=== PATIENT | female | born 1955 | race Caucasian/White ===

== ENCOUNTER → 2019-09-09 10:06 | Outpatient (CLI) | payer MEDICARE, OTHER, SELFPAY ==
--- NOTE | ~2019-09-09 | US_ITS ---
EXAMINATION: US retroperitoneal comp DATE: 09/09/2019 10:45 INDICATION: Chronic cystitis without hematuria TECHNIQUE: Multiple grayscale and Doppler ultrasound images of the kidneys were obtained. COMPARISON: None. FINDINGS: The right kidney measures 8.9 x 4.2 x 5.6 cm. The left kidney measures 9.5 x 4.6 x 5.1 cm. The kidneys demonstrate normal parenchymal echogenicity. There is no hydronephrosis. The bladder is n ormal. IMPRESSION: 1. Mild atrophy of the kidneys. Reviewed, dictated and finalized at location B.
== END ==
PROVIDERS: PCP Internal Medicine; Visit Provider Nurse Practitioner Adult Health
DX: N30.20 Other chronic cystitis without hematuria (principal); N26.1 Atrophy of kidney (terminal)
CPT/HCPCS: 76770

== ENCOUNTER → 2019-09-09 10:06 | Outpatient (CLI) | payer MEDICARE, OTHER, SELFPAY ==
--- NOTE | ~2019-09-09 | MM_ITS ---
EXAMINATION: MM screening [facility] HISTORY: Screening mammogram TECHNIQUE: Craniocaudal and mediolateral oblique 3-D tomosynthesis images were obtained and synthetic 2-D images were generated. CAD analysis was submitted and interpreted. COMPARISON: 06/10/2018, 01/28/2016 bilateral digital screening mammogram examinations BREAST PARENCHYMAL COMPOSITION: There are scattered areas of fibroglandular density. FINDINGS: There is no evidence of suspicious mass, calcification, or architectural distortion to sugg est malignancy in either breast. There has been no suspicious interval change. IMPRESSION: 1. No mammographic evidence of malignancy. 2. Recommend routine screening mammography in one year. BI-RADS Category 1: Negative Reviewed, dictated and finalized at location A.
== END ==
PROVIDERS: PCP Internal Medicine; Visit Provider Obstetrics & Gynecology Gynecology
DX: Z12.31 Encounter for screening mammogram for malignant neoplasm of breast (principal)
CPT/HCPCS: 77063; 77067

== ENCOUNTER 2020-03-08 08:57 | Outpatient (CLI) | payer MEDICARE, OTHER, SELFPAY ==
--- NOTE | 2020-03-08 11:00 | NEURO_ITS ---
Patient Number: [id number] Impression: # Complains of right lower extremity numbness. 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 # Normal motor and sensory nerve conduction study in right lower extremity with normal F-waves. # Normal needle/EMG exam without fibrillations or myotonia. # Normal study. # Clinical correlation recommended. Nerve Conduction Studies Anti Sensory Summary Table Stim Site NR Peak (ms) P-T Amp (?V) Site1 Site2 Delta-P (ms) Dist (cm) Shreyas (m/s) Right Sup Fibular Anti Sensory (Ant Lat Mall) 14 cm 3.9 8.5 14 cm Ant Lat Mall 3.9 16.0 41 Right Sural Anti Sensory (Lat Mall) Calf 3.6 12.9 Calf Lat Mall 3.6 16.0 44 Motor Summary Table Stim Site NR Onset (ms) O-P Amp (mV) Site1 Site2 Delta-0 (ms) Dist (cm) Shreyas (m/s) Right Peroneal Motor (Vastus Med) Ankle 4.2 2.4 Popit Ankle 7.4 35.0 47 Popit 11.6 2.4 Right Tibial Motor (Abd Ferrara Brev) Ankle 4.0 3.4 Knee Ankle 8.3 40.0 48 Knee 12.3 2.3 F Wave Studies NR F-Lat (ms) L-R F-Lat (ms) Right Peroneal (Mrkrs) (EDB) 44.56 Right Tibial (Mrkrs) (Abd Hallucis) 43.98 EMG Side Muscle Nerve Root Ins Act Fibs Amp Dur Recrt Comment Right AntTibialis Dp Br Fibular L4-5 Nml Nml Nml Nml Nml Right Gastroc Tibial S1-2 Nml Nml Nml Nml Nml Right Fibularis Long Sup Br Fibular L5-S1 Nml Nml Nml Nml Nml Right Flex Dig Long Tibial L5-S2 Nml Nml Nml Nml Nml Right Ext Dig Brev Dp Br Fibular L5, S1 Nml Nml Nml Nml Nml Right QuadratusFem QuadFemoris L4-5, S1 Nml Nml Nml Nml Nml MTDD
== END 2020-03-08 08:58 | disposition home or self-care (01) ==
LOC: ANHNEURO 08:58
PROVIDERS: PCP Internal Medicine; Visit Provider Internal Medicine
DX: R20.2 Paresthesia of skin (principal)
CPT/HCPCS: 95886; 95908

== ENCOUNTER 2021-04-12 10:36 | Outpatient (CLI) | payer MEDICARE, OTHER, SELFPAY ==
--- NOTE | ~2021-04-12 | CT_ITS ---
EXAMINATION: CTA brain carotid DATE: 04/12/2021 11:44 INDICATION: Dizziness. Other visual disturbances. TECHNIQUE: Computed tomographic angiography (CTA) of the head was performed without and with 100 mL O mnipaque-350 intravenous contrast. CTA of the neck was performed with intravenous contrast. Automated exposure control and iterative reconstruction technique were employed. The dose-length product was 1 484.26 mGy-cm. Maximum intensity projection and volume rendered 3D-reconstructions were created by nando calderon technologist on a separate workstation. COMPARISON: None. FINDINGS: HEAD CTA: There is no intracranial hemorrhage, acute infarction, or abnormal intracranial mass lesion . The ventricles are normal in size. The paranasal sinuses are clear. The orbits are normal. The mast oid air cells are normal. Left vertebral artery is dominant. There is no significant stenosis of basi lar artery or the posterior cerebral arteries. There is an infundibulum of left posterior communicati ng artery. Right posterior communicating artery is normal. There is no significant stenosis of the in tracranial internal carotid arteries or anterior or middle cerebral arteries. Anterior communicating artery is normal. There is no aneurysm. NECK CTA: There is mild scarring at the lung apices. There are no pathologically enlarged lymph nodes . There is a 4 mm nodule in left thyroid lobe, likely not clinically significant. There is no signifi cant stenosis of the vertebral arteries. There is mild plaque in the proximal internal carotid arteri es. There is 0% stenosis of the proximal right internal carotid artery relative to normal distal bridger ry lumen diameter (NASCET criteria). There is 0% stenosis of the proximal left internal carotid arter y relative to normal distal artery lumen diameter. There is mild cervical spondylosis. IMPRESSION: 1. Normal brain. No aneurysm or significant intracranial arterial stenosis. 2. 0% stenosis of the proximal internal carotid arteries relative to normal distal artery lumen diame ters (NASCET criteria). Reviewed, dictated and finalized at location A. IMPRESSION: 1. Normal brain. No aneurysm or significant intracranial arterial stenosis. 2. 0% stenosis of the proximal internal carotid arteries relative to normal dis colby artery lumen diameters (NASCET criteria).
[2021-04-12 11:35] LABS: Estimated Glomerular Filt Rate > 60
== END 2021-04-12 10:37 | disposition home or self-care (01) ==
PROVIDERS: PCP Internal Medicine; Visit Provider Nurse Practitioner
DX: H53.8 Other visual disturbances (principal)
CPT/HCPCS: 70496; 70498; Q9967

== ENCOUNTER → 2022-02-03 14:30 | Outpatient (CLI) | payer MEDICARE, OTHER, SELFPAY ==
--- NOTE | ~2022-02-03 | DEXA_ITS ---
Bone Density Report Name: BRENDA SPAULDING Age: 66 Sex: Female Ethnicity: White Date of : 1955 Indication: postmenopausal; screening for osteoporosis; parental hip fracture; height loss; Referring Provider: JADE CAREY Study: Bone densitometry was performed. Exam Date: February 03, 2022 Accession number: [id number] Bone Density: Region BMD T-score Z-score Classification AP Spine (L1-L4) 1.001 -0.4 1.6 Normal Femoral Neck (Left) 0.582 -2.4 -0.7 Osteopenia Total Hip (Left) 0.820 -1.0 0.4 Normal Femoral Neck (Right) 0.604 -2.2 -0.5 Osteopenia Total Hip (Right) 0.804 -1.1 0.3 Osteopenia Total Hip Mean 0.812 -1.1 0.4 Osteopenia World Health Organization criteria for BMD impression classify patients as: Normal (T-score at or above -1.0), Osteopenia (T-score between -1.0 and -2.5), or Osteoporosis (T-score at or below -2.5). 10-year Fracture Risk(1): Major Osteoporotic Fracture 22% Hip Fracture 5.3% Reported Risk Factors: [place] (), Neck BMD=0.582, BMI=25.1, parental fracture (1) FRAX(R) Version 3.08. Fracture probability calculated for an untreated patient. Fracture probability may be lower if the patient has received treatment. Previous Exams: Region Exam Age BMD T-score BMD Change BMD Change Date g/cm2 vs Baseline vs Previous AP Spine(L1-L4) 02/03/2022 66 1.001 -0.4 0.053* -0.066* 01/28/2016 60 1.068 0.2 0.120* 0.130* 01/13/2014 58 0.938 -1.0 -0.010 0.041* 07/31/2011 56 0.897 -1.4 -0.051* 0.055* 06/13/2009 54 0.842 -1.9 -0.106* -0.106* 09/29/2006 51 0.948 -0.9 Total Hip(Left) 02/03/2022 66 0.820 -1.0 0.004 -0.019 06/10/2018 63 0.839 -0.8 0.023 -0.040* 01/28/2016 60 0.879 -0.5 0.064* 0.046* 01/13/2014 58 0.834 -0.9 0.018 0.024 07/31/2011 56 0.810 -1.1 -0.006 0.019 06/13/2009 54 0.791 -1.2 -0.025 -0.025 09/29/2006 51 0.816 -1.0 Total Hip(Right) 02/03/2022 66 0.804 -1.1 -0.014 -0.035* 06/10/2018 63 0.839 -0.8 0.021 0.008 01/28/2016 60 0.831 -0.9 0.013 0.005 01/13/2014 58 0.826 -0.9 0.008 0.015 07/31/2011 56 0.812 -1.1 -0.006 0.014 06/13/2009 54 0.797 -1.2 -0.020 -0.020 09/29/2006 51 0.818 -1.0 *Denotes significance at 95% confidence l
--- NOTE | ~2022-02-03 | MM_ITS ---
EXAMINATION: MM screening [facility] HISTORY: Screening TECHNIQUE: Craniocaudal and mediolateral oblique 3-D tomosynthesis images were obtained and synthetic 2-D images were generated. CAD analysis was submitted and interpreted. COMPARISON: Comparison to multiple prior studies sequentially, with oldest reviewed study dated 01/27. BREAST PARENCHYMAL COMPOSITION: There are scattered areas of fibroglandular density. FINDINGS: There is no evidence of suspicious mass, calcification, or architectural distortion to sugg est malignancy in either breast. There has been no suspicious interval change. IMPRESSION: 1. No mammographic evidence of malignancy. 2. Recommend routine screening mammography in one year. BI-RADS Category 1: Negative Reviewed, dictated and finalized at location A.
== END ==
PROVIDERS: PCP Obstetrics & Gynecology Gynecology; Visit Provider Obstetrics & Gynecology Gynecology
DX: Z12.31 Encounter for screening mammogram for malignant neoplasm of breast (principal); Z78.0 Asymptomatic menopausal state; M85.89 Other specified disorders of bone density and structure, multiple sites
CPT/HCPCS: 77063; 77067; 77080

== ENCOUNTER 2022-04-16 16:20 | Emergency (ER) | payer OTHER, MEDICARE, SELFPAY ==
--- NOTE | ~2022-04-16 | CT_ITS ---
EXAMINATION: CT cervical spine wo con DATE: 04/16/2022 17:46 INDICATION: head injury TECHNIQUE: Computed tomography (CT) of the cervical spine was performed without intravenous contrast. Automated exposure control and iterative reconstruction technique were employed. The dose-length pro duct was 225.00 mGy-cm. COMPARISON: CTA brain carotid 04/12/2021 FINDINGS: Vertebral Body Alignment: Intact. Craniocervical and atlantoaxial alignment: Moderate degenerative change. Alignment intact. Osseous structures/fracture: No evidence of a lytic or blastic process in the visualized cervical spi ne. Incidental note of superior endplate deformity and sclerosis at T3. No evidence of acute fracture . Trace left mastoid fluid. Cervical soft tissues: The paraspinal soft tissues planes are maintained. Biapical pleural scarring. Degenerative changes: Multilevel mild degenerative disc disease. Multilevel moderate facet arthropath y. No severe central canal or neural foraminal narrowing. IMPRESSION: No acute fracture or traumatic malalignment in the cervical spine. Mild superior endplate deformity a t T3, most likely chronic, unless accompanied by acute pain/tenderness. Reviewed, dictated and finalized at location K. IMPRESSION: No acute fracture or traumatic malalignment in the cervical spine. Mild superio r endplate deformity at T3, most likely chronic, unless accompanied by acute pa in/tenderness.
--- NOTE | ~2022-04-16 | CT_ITS ---
EXAMINATION: CT brain wo con DATE: 04/16/2022 17:45 INDICATION: head injury . TECHNIQUE: Computed tomography (CT) of the head was performed without intravenous contrast. The mA wa s adjusted according to patient size. Iterative reconstruction technique was employed. The dose-lengt h product was 529.67 mGy-cm. COMPARISON: 04/12/2021 FINDINGS: No acute intracranial hemorrhage or extra-axial fluid collection. No hydrocephalus, mass, or herniation. No acute ischemic infarct. Unremarkable dural venous sinus attenuation. No acute osseous abnormality. The aerated spaces are clear. Mild atherosclerotic intracranial calcifications. IMPRESSION: No acute intracranial process. Reviewed, dictated and finalized at location K.
[2022-04-16 16:35] VITALS: BP 159/85; PULSE 95; RESP 16; TEMP 36.2; O2SAT 97
--- NOTE | 2022-04-16 18:04 | ED.FALL ---
HPI - Fall General Chief Complaint: Fall Stated Complaint: fall, hit head Time Seen by Provider: 04/16/22 17:16 History of Present Illness HPI Narrative: 66-year-old female presents to the emergency room for evaluation of a head injury sustained from a ground-level mechanical fall. Patient states that she was walking forward when she slipped in some water falling backwards landing on the back of her head. Patient denies any LOC or altered mental status. Denies confusion, headaches or dizziness. Denies any nausea or vomiting. Denies vision or hearing changes. Patient is currently not anticoagulated. Related Data Home Medications Medication Instructions Recorded Confirmed calcium carbonate 600 mg calcium 600 mg PO BID 07/01/19 01/21/22 (1,500 mg) tablet cholecalciferol (vitamin D3) 250 250 mcg PO DAILY 01/07/21 01/21/22 mcg (10,000 unit) capsule Allergies Allergy/AdvReac Type Severity Reaction Status Date / Time erythromycin base Allergy Severe Unknown Verified 04/16/22 16:37 Penicillins Allergy Severe Unknown Verified 04/16/22 16:37 Review of Systems Review of Systems: CONSTITUTIONAL: Denies fever, chills, or sweats. EYES: Denies visual changes, redness, or discharge. ENT: Denies rhinorrhea, congestion, sore throat, or otalgia. CARDIOVASCULAR: Denies chest pain, palpitations, or edema. RESPIRATORY: Denies cough or dyspnea. GASTROINTESTINAL: Denies abdominal pain, nausea, vomiting, or diarrhea. GENITOURINARY: Denies dysuria or hematuria. SKIN: Denies rash or itching. MUSCULOSKELETAL: Denies back pain, joint pain, or myalgia. NEUROLOGIC: Denies headache, numbness, dizziness, or weakness. PSYCHIATRIC: Denies anxiety or depression. 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 HEAD: Normocephalic, small hematoma to posterior scalp EYES: Conjunctivae normal, PERRLA and EOMI. ENT: External nose normal, Nares clear, no rhinorrhea or epistaxis. Mucous membranes moist. Oropharynx without tonsillar hypertrophy exudate or other lesions. External ears normal, bilateral TMs normal bilaterally NECK: Supple. No meningeal signs. CHEST: Clear to auscultation. No respiratory distress. No wheezes rales or rhonchi. HEART: Regular rate and rhythm. No murmur heard. Normal peripheral pulses. ABDOMEN: Soft, nontender, nondistended, normal active bowel sounds. BACK: No midline cervical tenderness, step-offs, bony abnormality; FROM EXTREMITIES: Normal range of motion. No edema. No clubbing or cyanosis SKIN: Warm, dry, no rash. No noted wounds NEURO: No focal deficits. Alert and oriented x3. MAEW. CN's II-XI intact bilaterally, normal gait PSYCH: Cooperative. Normal mood and affect. Course Vital Signs Vital signs: Vital Signs Temperature 36.2 C L 04/16/22 16:35 Pulse Rate 95 04/16/22 16:35 Respiratory Rate 16 04/16/22 16:35 Blood Pressure 159/85 H 04/16/22 16:35 Pulse Oximetry 97 04/16/22 16:35 Temperature 36.2 C L 04/16/22 16:35 Pulse Rate 95 04/16/22 16:35 Respiratory Rate 16 04/16/22 16:35 Blo
== END 2022-04-16 19:04 | disposition home or self-care (01) ==
LOC: ANHED 18:53
PROVIDERS: Emergency Provider Nurse Practitioner Family; PCP Internal Medicine
DX: S09.90XA Unspecified injury of head, initial encounter (principal); W01.0XXA Fall on same level from slipping, tripping and stumbling without subsequent striking against object, initial encounter
CPT/HCPCS: 70450; 72125; 99284

== ENCOUNTER → 2023-01-28 11:34 | Outpatient (CLI) | payer MEDICARE, OTHER, SELFPAY ==
--- NOTE | ~2023-01-28 | XR_ITS ---
EXAMINATION: XR thoracic spine 3V DATE: 01/28/2023 11:52 INDICATION: Thoracic spine pain TECHNIQUE: AP, lateral and lateral swimmer's views of the thoracic spine were obtained. COMPARISON: None. FINDINGS: Bone alignment is normal. There is no fracture. The vertebral body heights are maintained. There is mild loss of intervertebral disc space height in the midthoracic spine. Surgical clips in th e right upper quadrant are likely from prior cholecystectomy. IMPRESSION: 1. Mild thoracic spondylosis without acute findings. Reviewed, dictated and finalized at location B.
== END ==
PROVIDERS: PCP Nurse Practitioner; Visit Provider Nurse Practitioner
DX: M54.6 Pain in thoracic spine (principal); M43.04 Spondylolysis, thoracic region
CPT/HCPCS: 72072

== ENCOUNTER → 2023-04-23 11:16 | Outpatient (CLI) | payer MEDICARE, OTHER, SELFPAY ==
--- NOTE | ~2023-04-23 | MM_ITS ---
EXAMINATION: MM screening ned[facility] BI [facility] HISTORY: Screening TECHNIQUE: Craniocaudal and mediolateral oblique 3-D tomosynthesis images were obtained and synthetic 2-D images were generated. CAD analysis was submitted and interpreted. COMPARISON: Comparison to multiple prior studies sequentially, with oldest reviewed study dated 01/27. BREAST PARENCHYMAL COMPOSITION: Breast composed of scattered areas of fibroglandular density FINDINGS: The left breast is stable without evidence for malignancy. There is a new mass in the lower outer quadrant of the right breast anteriorly. IMPRESSION: 1. New right breast mass, lower outer quadrant anteriorly. 2. Additional mammographic views and possible breast ultrasound are recommended. BI-RADS Category 0: Incomplete: Needs additional imaging evaluation. Reviewed, dictated and finalized at location A. STRY PATROLMAN IMPRESSION: 1. New right breast mass, lower outer quadrant anteriorly. 2. Additional mammographic views and possible breast ultrasound are recommended . BI-RADS Category 0: Incomplete: Needs additional imaging evaluation.
== END ==
PROVIDERS: PCP Obstetrics & Gynecology Gynecology; Visit Provider Obstetrics & Gynecology Gynecology
DX: Z12.31 Encounter for screening mammogram for malignant neoplasm of breast (principal); R92.8 Other abnormal and inconclusive findings on diagnostic imaging of breast
CPT/HCPCS: 77063; 77067

== ENCOUNTER → 2023-05-14 09:09 | Outpatient (CLI) | payer MEDICARE, OTHER, SELFPAY ==
--- NOTE | ~2023-05-14 | MMUS_ITS ---
EXAMINATION: MM diagnostic nedra RT [facility], US breast RT limited HISTORY: New right breast mass suggested on 04/23/2023 screening mammogram TECHNIQUE: Additional 3-D tomosynthesis images of the right breast were performed and synthetic 2-D i mages were generated. CAD analysis was submitted and interpreted. High resolution upper outer quadran t and lower outer quadrant right breast ultrasound was performed. COMPARISON: 05/03/2023 screening mammogram FINDINGS: MAMMOGRAPHIC FINDINGS: There is an approximately 3.6 x 6.9 mm opacity in the anterior lateral mid right breast, best demonst rated on ML full-field Tomosynthesis image /). Approximately 3 x 4.5 mm poorly circumscribed opac ity is noted in the same area that situated a little more posteriorly. Ultrasound imaging of the late ral aspect of the right breast was performed. ULTRASOUND: 9:00 3 cm from nipple: There is an irregular and typed parallel hypoechoic mass with posterior shadow ing, measuring up to approximately 8.5 mm dimension. Ultrasound-guided biopsy is recommended. IMPRESSION: 1. Irregular approximately 8.5 mm mass of right breast at 9:00 3 cm from nipple 2. Ultrasound-guided biopsy of right breast 9:00 lesions is recommended BI-RADS category 4, suspicious findings. Dr. Goodman telephoned the report and ultrasound-guided biopsy recommendation of right breast 9:00 lesio n on 05/14/2023 at 1012 hours to MARIANGEL Mayfield. Reviewed, dictated and finalized at location A. ERMAN IMPRESSION: 1. Irregular approximately 8.5 mm mass of right breast at 9:00 3 cm from nipple 2. Ultrasound-guided biopsy of right breast 9:00 lesions is recommended BI-RADS category 4, suspicious findings. Dr. Goodman telephoned the report and ultrasound-guided biopsy recommendation of r ight breast 9:00 lesion on 05/14/2023 at 1012 hours to MARIANGEL Mayfield.
== END ==
PROVIDERS: PCP Obstetrics & Gynecology Gynecology; Visit Provider Obstetrics & Gynecology Gynecology
DX: R92.8 Other abnormal and inconclusive findings on diagnostic imaging of breast (principal)
CPT/HCPCS: 76642; 77061; 77065; G0279

== ENCOUNTER 2024-02-23 09:07 | Outpatient (CLI) | payer MEDICARE, SELFPAY ==
--- NOTE | ~2024-02-23 | DEXA_ITS ---
Bone Density Report Name: BRENDA SPAULDING Age: 68 Sex: Female Ethnicity: White Date of : 1955 Indication: postmenopausal; screening for osteoporosis; parental hip fracture; height loss; history of glucocorticoids; Referring Provider: JADE CAREY Study: Bone densitometry was performed. Exam Date: February 23, 2024 Accession number: [id number] Bone Density: Region BMD T-score Z-score Classification AP Spine(L1-L4) 0.986 -0.6 1.6 Normal Femoral Neck (Left) 0.603 -2.2 -0.4 Osteopenia Total Hip (Left) 0.902 -0.3 1.2 Normal Femoral Neck (Right) 0.629 -2.0 -0.1 Osteopenia Total Hip (Right) 0.872 -0.6 1.0 Normal Total Hip Mean 0.887 -0.5 1.1 Normal World Health Organization criteria for BMD impression classify patients as: Normal (T-score at or above -1.0), Osteopenia (T-score between -1.0 and -2.5), or Osteoporosis (T-score at or below -2.5). 10-year Fracture Risk(1): Major Osteoporotic Fracture 30% Hip Fracture 11% Reported Risk Factors: [place] (), Neck BMD=0.603, BMI=22.7, parental fracture, glucocorticoids (1) FRAX(R) Version 3.08. Fracture probability calculated for an untreated patient. Fracture probability may be lower if the patient has received treatment. Clinical Information Provided by Patient: Parent has had a hip fracture Has taken Glucocorticoids Has used the following medications: Vitamin D, Calcium Patient maximum height was 62 Menopause Age: 53 No regular weight bearing exercise Onset of menses at age 15 Number of children 1 Impression: The patient has low bone mass, based on the Left Femoral Neck T-score. The patient has an estimated ten-year risk of hip fracture of 11% and an estimated ten-year risk of major fracture of 30%, based on the WHO FRAX algorithm. The patient has risk factors, including: parental hip fracture, history of glucocorticoid therapy. Discussion: BONE DENSITY IS LOW AT ONE OR MORE SKELETAL SITES. THE PATIENT'S BMD AND CLINICAL RISK FACTORS CONTRIBUTE TO THIS PATIENT'S HIGH RISK OF FRACTURE. This patient's lowest T-score is low at one or more skeletal sites. It meets the World Health Organization's (WHO) criteria for ?low bone mass? (T-score between -1.0 and -2.5). The patient's 10-year risk of hip fracture and 10 year risk of a major osteoporotic fracture as calculated by FRAX exceeds the threshold where pharmacological therapy is recommended by the National Osteoporosis Foundation (NOF). However, all treatment decisions require clinical judgment and consideration of individual patient factors, including patient preferences, comorbidities, previous drug use, risk factors not captured in the FRAX model (e.g., frailty, falls, vitamin D deficiency, increased bone turnover, interval significant decline in bone density) and possible under or overestimation of fracture risk by FRAX. The patient should follow a h
== END 2024-02-23 09:08 | disposition home or self-care (01) ==
LOC: ANHIMG 09:08
PROVIDERS: PCP Family Medicine; Visit Provider Obstetrics & Gynecology Gynecology
DX: M85.89 Other specified disorders of bone density and structure, multiple sites (principal); Z78.0 Asymptomatic menopausal state
CPT/HCPCS: 77080

== ENCOUNTER 2024-03-15 13:14 | Outpatient (CLI) | payer MEDICARE, SELFPAY ==
--- NOTE | ~2024-03-15 | XR_ITS ---
XR hip BI 2V w AP pelvis Ordering provider: Chas Goomdan MD History: . M25.552 - Pain in left hip . Comparison: None. FINDINGS: BONES: No acute fracture or dislocation. HIP JOINT SPACES: Normal. SACROILIAC JOINT SPACES/LUMBAR SPINE: The sacroiliac joint spaces are normal. Mild degenerative nunn es of the visualized lower lumbar spine. PUBIC SYMPHYSIS: Normal. SOFT TISSUES: Normal. IMPRESSION: No acute osseous abnormality of the bilateral hips and pelvis. Reviewed, dictated and finalized at location A.
--- NOTE | ~2024-03-15 | XR_ITS ---
Lumbosacral Spine: AP and lateral views Clinical History: Pain Findings: There is mild dextroscoliosis. There is minimal grade 1 retrolisthesis of L3 over L4. There is moderate to advanced degenerative disc narrowing at L2-L3 with moderate degenerative disc narrowi ng at L1-L2 and L3-L4. There is moderate to advanced facet arthropathy throughout the lumbar spine. T he sacroiliac joints are normally outlined. Impression: Moderate to advanced degenerative spondylosis, as above. Dextroscoliosis. Reviewed, dictated and finalized at location M. Impression: Moderate to advanced degenerative spondylosis, as above. Dextroscoliosis.
== END 2024-03-15 13:15 | disposition home or self-care (01) ==
PROVIDERS: PCP Family Medicine; Visit Provider Family Medicine
DX: M54.30 Sciatica, unspecified side (principal); M25.552 Pain in left hip; M47.816 Spondylosis without myelopathy or radiculopathy, lumbar region; M41.9 Scoliosis, unspecified
CPT/HCPCS: 72100; 73521

== ENCOUNTER 2025-06-09 14:49 | Emergency (ER) | payer MEDICARE, SELFPAY ==
[2025-06-09 15:00] VITALS: BP 180/86; PULSE 83; RESP 16; TEMP 36.5; O2SAT 100
--- NOTE | 2025-06-09 15:10 | ED.FEMALEGU ---
HPI - Female Genitourinary General Chief complaint: Urogenital-Female Stated complaint: UTI Source: patient Mode of arrival: ambulatory Limitations: no limitations History of Present Illness HPI Narrative: this is a 70-year-old female who presents to the urgent care with complaints of burning with urination, frequency of urination and foul-smelling urine. Patient states he has a history of UTIs. She is hoping to see her primary today however they are close. She denies any fever chills, she states this is getting more more comfortable when she urinates. More burning sensation. Denies any fever chills denies any nausea, vomiting or diarrhea. MD elicited complaint: dysuria Onset (ago): day(s) (2) Location of symptoms: suprapubic Severity: mild Female Urogenital Radiation: Suprapubic Severity scale (1-10): 3 Quality of pain: burning Consistency: constant Vaginal discharge: none Vaginal bleeding: none Urinary symptoms: Dysuria, Frequency and Foul Smelling Urine Exacerbating factors: urination Relieving factors: none Associated symptoms: denies other symptoms Treatment prior to arrival: OTC urinary analgesics Sexual activity: No Patient : No Related Data Home Medications ?Medication ?Instructions ?Recorded ?Confirmed ?Last Taken ?Type calcium carbonate 600 mg PO BID 07/01/19 01/21/22 Unknown History cholecalciferol (vitamin D3) 250 250 mcg PO DAILY 01/07/21 01/27/23 Unknown History mcg (10,000 unit) capsule alendronate 70 mg tablet (Fosamax) 70 mg PO WEEKLY 01/27/23 01/27/23 Unknown History aspirin 81 mg tablet 81 mg PO DAILY 03/29/25 Unknown History Allergies Allergy/AdvReac Type Severity Reaction Status Date / Time erythromycin base Allergy Severe Unknown Verified 06/09/25 14:52 Penicillins Allergy Severe Unknown Verified 06/09/25 14:52 Review of Systems Review of Systems: All systems reviewed & are unremarkable except as noted in HPI and below PMFSH Past Medical History Medical History History of ectopic Hernia Myotonia Osteopenia Obstructed fallopian 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 Ovarian cyst Surgical History Surgical History Hx of tonsillectomy History of carpal tunnel release Hx of appendectomy History of cholecystectomy Family History Family History Mother Hypertension Father Family history of emphysema Grandparent Family history of lung cancer Social History Social History Smoking status: Never smoker Second hand tobacco smoke exposure: Yes Alcohol intake: never Substance use: never Substance use type: does not use Lack of Transportation: No Lack of Food: Never True Concerned About Future Housing: No Difficulty Paying Gas/Electric Bills: No Difficulty Paying for Meds: No Currently Unemployed: No Education: Associate Degree Difficulty w/ Childcare or Family Care: No Exam Const: General: healthy appearing Nutritional Appearance: well nourished Orientation/consciousness: patient oriented x3 Limitations: no limitations HENMT: Head: normal to inspection Ears: external ears normal Face/Nose/Sinus: Normal external nose present Face and sinus: normal facial exam Mouth: Yes Normal oral and palatal mucosa present Teeth and gingiva: dentition normal Throat: posterior oropharynx normal Eyes: Conjunctivae: conjunctivae normal Pupils: Equal, round and reactive pupils present EOM: EOMs intact bilaterally Neck: Neck: normal visual inspection and no lymphadenopathy Chest: Chest palpation & inspection: normal inspection of the chest Resp: Effort & Inspection: normal respiratory effort Auscultation: clear to auscultation bilaterally Cardio: Rate: regular rate Rhythm: regular rhythm GI: GI Palp: Yes Soft to palpation Auscultation: normal bowel sounds : General: Yes Bladder palpation abnormal tender Back/Spine/Pelvis: Back: no CVA tenderness Skin: General skin exam: normal color Rashes: no rashes Wounds: no wounds Neuro: General: patient oriented x3 Cranial nerves: Yes Nystagmus not present Speech: normal speech Extrem: General: normal to inspection and no clubbing, cyanosis or edema Psych: Appearance: grossly normal Mental Status: mental status grossly normal Affect: normal affect Attitude: cooperative Course Course Emergency Course: this is a 70-year-old female who presents to the urgent care with complaints of burning with urination, frequency of urination and foul-smelling urine. Patient states he has a history of UTIs. She is hoping to see her primary today however they are close. She denies any fever chills, she states this is getting more more comfortable when she urinates. More burning sensation. Denies any fever chills denies any nausea, vomiting or diarrhea. vital signs stable urinalysis and urine culture ordered Urinalysis noted positive leukocytes, positive nitrates, Elevated white blood cells. Educated patient on need for urine culture, will pre treat with cefdinir 300 mg twice daily for the next 7 days. Educated her continue with azo, a follow-up with her primary. Answered all questions to her satisfaction she is agreeable to plan. educated patient to increase fluids, rest, take Antibiotic as prescribed, continue with azo urinary [id number], avoid baths, hot tubs, pools and change any soiled clothing quickly. follow-up with primary care provider next 2-3 days for further evaluation exam, return the emergency department any worrisome sign or symptom. answered all questions to her satisfaction she is agreeable plan. Patient denies any further needs or concerns to be addressed prior to discharge Level of Care: Express Care Visit Vital Signs Vital signs: Vital Signs Temperature 97.7 F 06/09/25 15:00 Pulse Rate 83 06/09/25 15:00 Respiratory Rate 16 06/09/25 15:00 Blood Pressure 180/86 H 06/09/25 15:00 Pulse Oximetry 100 06/09/25 15:00 Oxygen Delivery Room Air 06/09/25 15:00 Temperature 97.7 F 06/09/25 15:00 Pulse Rate 83 06/09/25 15:00 Respiratory Rate 16 06/09/25 15:00 Blood Pressure 180/86 H 06/09/25 15:00 Pulse Oximetry 100 06/09/25 15:00 Oxygen Delivery Room Air 06/09/25 15:00 [facility] Narrative Medical decision making narrative: this is a 70-year-old female who presents to the urgent care with complaints of burning with urination, frequency of urination and foul-smelling urine. Patient states he has a history of UTIs. She is hoping to see her primary today however they are close. She denies any fever chills, she states this is getting more more comfortable when she urinates. More burning sensation. Denies any fever chills denies any nausea, vomiting or diarrhea. vital signs stable urinalysis and urine culture ordered Urinalysis noted positive leukocytes, positive nitrates, Elevated white blood cells. Educated patient on need for urine culture, will pre treat with cefdinir 300 mg twice daily for the next 7 days. Educated her continue with azo, a follow-up with her primary. Answered all questions to her satisfaction she is agreeable to plan. educated patient to increase fluids, rest, take Antibiotic as prescribed, continue with azo urinary [id number], avoid baths, hot tubs, pools and change any soiled clothing quickly. follow-up with primary care provider next 2-3 days for further evaluation exam, return the emergency department any worrisome sign or symptom. answered all questions to her satisfaction she is agreeable plan. Patient denies any further needs or concerns to be addressed prior to discharge Differential Diagnosis Differential Diagnosis: UTI, cystitis Medical Records I have reviewed the following patient records and this information was taken into consideration when formulating the assessment and plan.: previous labs and previous clinic visits Lab Data MDM Lab Attestation statement: I personally reviewed the patient's lab results. Labs: Lab Results 06/09/25 Range/Units 15:05 POC Urine Color Yellow POC Urine Clarity Cloudy POC Urine pH 6.0 POC Ur Specif Rupert 1.010 POC Urine Protein Negative (Negative) POC Ur Glucose (UA) Negative (Negative) POC Urine Ketones Negative (Negative) POC Urine Blood 1+ (Negative) POC Urine Nitrite Positive (Negative) POC Urine Bilirubin Negative (Negative) POC Urine Urobilinogen 0.2 POC U Leukocyte Esteras 3+ (Negative) Discharge Plan Discharge Clinical Impression: Urinary tract infection Patient Disposition: Home Condition: Stable Instructions: Antibiotic Form, Urinary Tract Infection in Women (ED), Dysuria (ED) Additional Instructions: increase fluids rest take Antibiotic as prescribed continue with azo urinary [id number] avoid baths, hot tubs, pools and change any soiled clothing quickly. follow-up with primary care provider next 2-3 days for further evaluation exam return the emergency department any worrisome sign or symptom Patient Language: Scottish Prescriptions: New cefdinir 300 mg capsule 300 mg PO Q12H Qty: 14 0RF No Action cholecalciferol (vitamin D3) 250 mcg (10,000 unit) capsule 250 mcg PO DAILY Patient Comments: patient takes medication 5 times per week alendronate [Fosamax] 70 mg tablet 70 mg PO WEEKLY fluticasone propionate [Flonase Allergy Relief] 50 mcg/actuation spray,suspension 1 spray intranasal BID Qty: 16 1RF Rx Instructions: administer into each nostril calcium carbonate 600 mg calcium (1,500 mg) tablet 600 mg PO BID aspirin 81 mg tablet 81 mg PO DAILY Savella 100 mg tablet See Rx Instructions .ROUTE .COMPLEX Qty: 180 1RF Dose Instruction: TAKE 1 TABLET BY MOUTH TWICE DAILY Rx Instructions: TAKE 1 TABLET BY MOUTH TWICE DAILY nifedipine 30 mg tablet extended release See Rx Instructions .ROUTE .COMPLEX Qty: 90 1RF Dose Instruction: TAKE 1 TABLET BY MOUTH DAILY Rx Instructions: TAKE 1 TABLET BY MOUTH DAILY doxepin 25 mg capsule See Rx Instructions .ROUTE .COMPLEX Qty: 90 1RF Dose Instruction: TAKE 1 CAPSULE BY MOUTH EVERY DAY AT BEDTIME Rx Instructions: TAKE 1 CAPSULE BY MOUTH EVERY DAY AT BEDTIME cetirizine [Zyrtec] 10 mg tablet 10 mg PO DAILY Qty: 90 1RF Follow-up/Referrals: Chas Goodman MD [Primary Care Provider, Family Practice] Time of Disposition: 15:28
[2025-06-09 15:14] LABS: EDUAAPPEAR Cloudy; EDUABILI Negative (Negative); EDUABLOOD 1+ (Negative); EDUACOLOR1 Yellow; EDUAGLUCOSE Negative (Negative); EDUAKETONE Negative (Negative); EDUALEUKO 3+ (Negative); EDUANITRATE Positive (Negative); EDUAPH 6.0; EDUAPROTEIN Negative (Negative); EDUASPGRAVITY 1.010; EDUAUROBILI 0.2
== END 2025-06-09 15:35 | disposition home or self-care (01) ==
PROVIDERS: Emergency Provider Nurse Practitioner Family; PCP Family Medicine
DX: N39.0 Urinary tract infection, site not specified (principal); M85.80 Other specified disorders of bone density and structure, unspecified site; Z79.82 Long term (current) use of aspirin
CPT/HCPCS: 81003; 87077; 87086; 87186; 99213; G0463